=== PATIENT | female | born 1950 | race Caucasian/White ===

== ENCOUNTER 2016-07-02 00:11 | Emergency (ER) | payer OTHER ==
[2016-07-02 00:20] VITALS: BMI 29.8
[2016-07-02] MEDS ORDERED: NS 1000 ML 1,000 ML IV ONE ×4 (00:29→02:49)
[2016-07-02] MEDS ORDERED: ZOFRAN INJ 4 MG VIAL IVP ONE ×2 (00:29→02:25)
[2016-07-02] MEDS ORDERED: NS 1000 ML 1,000 ML ONE ×3 (00:30→02:48)
[2016-07-02] MEDS ORDERED: ZOFRAN INJ 4 MG VIAL ONE ×2 (00:30→02:26)
[2016-07-02 00:49] LABS: BASOPHILS % (AUTO) 0.4 % (0.2-1.0); EOSINOPHILS % (AUTO) 0.3 % (0.9-2.9); HEMATOCRIT 48.3 % (36.0-47.0); LYMPHOCYTES % (AUTO) 24.8 % (21.0-51.0); MEAN CORPUSCULAR HEMOGLOBIN 30.5 pg (27.0-34.0); MEAN CORPUSCULAR HGB CONC 35.2 g/dL (33.0-35.0); MEAN CORPUSCULAR VOLUME 86.7 fL (80.0-100.0); MEAN PLATELET VOLUME 8.1 fL (7.4-11.0); MONOCYTES # (AUTO) 0.9 x10^3/uL (0.3-0.8); MONOCYTES % (AUTO) 10.5 % (0.0-13.0); NEUTROPHILS # (AUTO) 5.3 x10^3/uL (2.2-4.8); PLATELET COUNT 382 X10^3/uL (150.0-450.0); RED BLOOD COUNT 5.57 X10^6/uL (3.5-5.4); RED CELL DISTRIBUTION WIDTH 13.2 % (11.6-16.5); WHITE BLOOD COUNT 8.3 X10^3/uL (3.6-10.0)
[2016-07-02 00:59] LABS: ALANINE AMINOTRANSFERASE 30 Units/L (12-78); ALBUMIN 4.3 g/dL (3.4-5.0); ALKALINE PHOSPHATASE 46 Units/L (46-116); AMYLASE 47 Units/L (25-115); ASPARTATE AMINO TRANSFERASE 26 Units/L (15-37); BLOOD UREA NITROGEN 59 mg/dL (7-18); CARBON DIOXIDE 16.4 mmol/L (21-32); CHLORIDE 99 mmol/L (98-107); COR NA(FOR HYPERGLY) 136 mmol/L (136-145); CREATININE 2.73 mg/dL (0.55-1.02); GLUCOSE 141 mg/dL (65-99); LIPASE 143 Units/L (73-393); SODIUM 135 mmol/L (136-145); TOTAL PROTEIN 8.8 g/dL (6.4-8.2); eGFR BLACK RACES 23 (>60); eGFR NON BLACK RACES 19 (>60)
--- NOTE | 2016-07-02 01:15 | DR.GENAD ---
HPI - PCP Primary Care Physician: mary ann - Complaint/Symptoms Chief Complaint Doctors Comments: History as stated. Vomiting and diarrhea for two days. Low grade fever. Spouse had similar illness two prior to her. Chief Complaint:: pt states" J LUIS HAD THIS VIRUS SINCE THRUSDAY MY STOMACH IS CRAMPING ME BAD, I STILL GOT DIARRHEA AND I'VE BEEN VOMITING BUT NOW I'M JUST DRY HEAVING" - Source History Provided: Patient - Mode of Arrival Mode of Arrival: Ambulatory - Timing Onset of Chief Complaint: 06/29/16 PMH - PMH Past Medical History: Yes Past Medical History: Asthma, COPD, Gout, Hypertension, Hypothyroidism Past Surgical History: Yes Surgical History: Cholecystectomy, Hysterectomy, Other - Family History History of Family Medical Conditions: Yes Family Medical History: Diabetes Mellitus, [place], Heart Failure, Hypertension - Social History Do you use any recreational Drugs:: No Lives With: Family Lives Where: Home - infectious screening In the last 2 months have you had wt loss of >10#?: NO Have you had fever, night sweats or hemotysis?: No Have you traveled outside the country in the last 6 months?: No Isolation: Standard ROS - Review of Systems Eyes: No Symptoms Reported ENTM: No Symptoms Reported Respiratoy: No Symptoms Reported Cardiovascular: No Symptoms Reported Gastrointestinal/Abdominal: No Symptoms Reported Genitourinary: No Symptoms Reported Neurological: No Symptoms Reported Musculoskeletal: No Symptoms Reported Integumentary: No Symptoms Reported Hematologic/Lymphatic: No Symptoms Reported Endocrine: No Symptoms Reported Psychiatric: No Symptoms Reported All Other Systems: Reviewed and Negative PE - Vital Signs Vitals: Temperature 98.8 F Pulse Rate [Left Brachial] 86 Pulse Rate 118 Respiratory Rate 20 Blood Pressure [Left Radial 141/62 Artery] Blood Pressure [Right Arm] 141/68 Blood Pressure [Left Arm] 121/60 Blood Pressure 159/98 O2 Sat by Pulse Oximetry 97 - General Limitations: No Limitations General Appearance: Alert, Anxious - Head Head Exam: Normal Inspection, Atraumatic - Eyes Eye exam: Normal Appearance, PERRL, EOMI, Scleral Icterus - ENT ENT Exam: Normal Exam. negative: Normal Oropharynx (dry) External Ear Exam: Normal External Inspection TM/Canal Exam: Bilateral Normal Nose Exam: Normal Nose Exam Mouth Exam: Normal Inspection Throat Exam: Normal Inspection - Neck Neck Exam: Normal Inspection, Full ROM - Chest Chest Inspection: Normal Inspection, Symmetric Chest Wall Rise - Respiratory Respiratory Exam: Normal Lung Sounds Bilat Respiratory Exam: Bilateral Clear to Auscultation - Cardiovascular Cardiovascular Exam: Regular Rate, Normal Rhythm - Abdominal Exam Abdominal Exam: Normal Inspection, Dimnished Bowel Sounds Abdominal Tenderness: negative: RUQ, RLQ, LUQ, LLQ, Epigastrium, Suprapubic, Diffuse, Mild, Moderate, Severe, Other - Extremities Extremities Exam: Normal Inspection, Full ROM - Back Back Exam: Normal Inspection, Full ROM - Neurologic Neurological Exam: Alert, Oriented X3 - Psychiatric Psychiatric Exam: Normal Mood, Anxious - Skin Skin Exam: Warm, Dry, Intact Course - Treatment Treatment: 2L NS pulse decreased to 86, capillary refill decreased mucous membranes moist. - Reevaluation 1st: Improved ROR - Labs Reviewed Laboratory Results Reviewed?: Yes (low potassium, elevated BUN) Result Diagrams: 07/02/16 00:40 07/02/16 03:48 Laboratory: WBC 8.3 X10^3/uL (3.6-10.0) 07/02/16 00:40 RBC 5.57 X10^6/uL (3.5-5.4) H 07/02/16 00:40 Hgb 17.0 g/dL (12.0-16.0) H 07/02/16 00:40 Hct 48.3 % (36.0-47.0) H 07/02/16 00:40 MCV 86.7 fL (80.0-100.0) 07/02/16 00:40 MCH 30.5 pg (27.0-34.0) 07/02/16 00:40 MCHC 35.2 g/dL (33.0-35.0) H 07/02/16 00:40 RDW 13.2 % (11.6-16.5) 07/02/16 00:40 Plt Count 382 X10^3/uL (150.0-450.0) 07/02/16 00:40 MPV 8.1 fL (7.4-11.0) 07/02/16 00:40 Neut % 64.0 % (42.0-75.0) 07/02/16 00:40 Lymph % 24.8 % (21.0-51.0) 07/02/16 00:40 [place] % 10.5 % (0.0-13.0) 07/02/16 00:40 Eos % 0.3 % (0.9-2.9) L 07/02/16 00:40 Baso % 0.4 % (0.2-1.0) 07/02/16 00:40 Neut # 5.3 x10^3/uL (2.2-4.8) H 07/02/16 00:40 Lymph # 2.0 X10^3/uL (1.3-2.9) 07/02/16 00:40 [place] # 0.9 x10^3/uL (0.3-0.8) H 07/02/16 00:40 Eos # 0.0 x10^3/uL (0.0-0.2) 07/02/16 00:40 Baso # 0.0 X10^3/uL (0.0-0.1) 07/02/16 00:40 Absolute Nucleated RBC 0.4 /100WBC 07/02/16 00:40 Sodium 143 mmol/L (136-145) 07/02/16 03:48 Corrected Sodium TNP 07/02/16 03:48 Potassium 3.3 mmol/L (3.5-5.1) L 07/02/16 03:48 Chloride 110 mmol/L (98-107) H 07/02/16 03:48 Carbon Dioxide 19.6 mmol/L (21-32) L 07/02/16 03:48 BUN 49 mg/dL (7-18) H 07/02/16 03:48 Creatinine 1.73 mg/dL (0.55-1.02) H 07/02/16 03:48 Est GFR (MDRD) Af Amer 38 (>60) L 07/02/16 03:48 Est GFR (MDRD) Non-Af 32 (>60) L 07/02/16 03:48 Glucose 107 mg/dL (65-99) H 07/02/16 03:48 Calcium 7.0 mg/dL (8.5-10.1) L 07/02/16 03:48 Corrected Calcium TNP 07/02/16 00:40 Total Bilirubin 0.60 mg/dL (0.2-1.0) 07/02/16 00:40 AST 26 Units/L (15-37) 07/02/16 00:40 ALT 30 Units/L (12-78) 07/02/16 00:40 Alkaline Phosphatase 46 Units/L (46-116) 07/02/16 00:40 C-Reactive Protein 39.00 mg/L (0-3.0) H 07/02/16 00:40 Total Protein 8.8 g/dL (6.4-8.2) H 07/02/16 00:40 Albumin 4.3 g/dL (3.4-5.0) 07/02/16 00:40 Globulin 4.5 g/dL (2.5-4.5) 07/02/16 00:40 Albumin/Globulin Ratio 1.0 Ratio (1.1-2.1) L 07/02/16 00:40 Amylase 47 Units/L (25-115) 07/02/16 00:40 Lipase 143 Units/L (73-393) 07/02/16 00:40 Specimen Type Clean catch urine 07/02/16 01:36 Urine Color Yellow (YELLOW) 07/02/16 01:36 Urine Appearance Hazy (CLEAR) 07/02/16 01:36 Urine pH 5.0 (5.0 - 8.0) 07/02/16 01:36 Ur Specific [place] 1.025 (1.000-1.030) 07/02/16 01:36 Urine Protein 2+ (NEGATIVE) 07/02/16 01:36 Urine Glucose (UA) Negative (NEGATIVE) 07/02/16 01:36 Urine Ketones 1+ (NEGATIVE) 07/02/16 01:36 Urine Occult Blood 2+ (NEGATIVE) 07/02/16 01:36 Urine Nitrite Negative (NEGATIVE) 07/02/16 01:36 Urine Bilirubin 1+ (NEGATIVE) 07/02/16 01:36 Urine Urobilinogen Normal (NORMAL) 07/02/16 01:36 Ur Leukocyte Esterase 2+ (NEGATIVE) 07/02/16 01:36 Urine RBC 1-4 /HPF (NEGATIVE) 07/02/16 01:36 Urine WBC 1-4 /HPF (NEGATIVE) 07/02/16 01:36 Ur Squamous Epith Cells Numerous /HPF (NEGATIVE) 07/02/16 01:36 Urine Bacteria Trace /HPF (NEGATIVE) 07/02/16 01:36 Urine Mucus Few /HPF (NEGATIVE) 04/23/17 01:36 Ur Culture Indicated? No/not indicated 07/02/16 01:36 - XRAY XRAY Interpreted by: Radiologist (Chest: negative) - Diagnosis Discharge Problem: Gastroenteritis, Dehydration, mild - Discharge Plan Condition: Stable - Follow ups/Referrals Follow ups/Referrals: MICHELINE TORIBIO [Primary Care Provider] - 3 days - Instructions
[2016-07-02] MEDS ORDERED: K-LYTE EFFERVESCENT PO ONE (01:18)
[2016-07-02] MEDS ORDERED: BENTYL I.M. INJ 10 MG IM ONE ×2 (01:19→01:37)
--- NOTE | 2016-07-02 01:41 | RAD ---
EXAM: Chest X-ray INDICATION: Vomiting COMPARISION: No recent prior TECHNIQUE: AP, single view FINDINGS: The lungs are clear in the lung volumes are within normal limits. No pleural effusion or pneumothora x. The cardiac silhouette and mediastinum are normal. The regional skeleton is intact. IMPRESSION: Normal Chest X-Ray Reported By:
[2016-07-02 01:50] LABS: BILIRUBIN,URINE 1+ (NEGATIVE); BLOOD/HEMOGLOBIN,URINE 2+ (NEGATIVE); GLUCOSE, URINE NEGATIVE (NEGATIVE); KETONES,URINE 1+ (NEGATIVE); LEUKOCYTE ESTERASE ,URINE 2+ (NEGATIVE); NITRITES,URINE NEGATIVE (NEGATIVE); PROTEIN,URINE 2+ (NEGATIVE); UROBILINOGEN,URINE NORMAL (NORMAL)
[2016-07-02 02:00] LABS: APPEARANCE,URINE HAZY (CLEAR); BACTERIA,URINE TRACE /HPF (NEGATIVE); COLOR,URINE YELLOW (YELLOW); MUCUS,URINE FEW /HPF (NEGATIVE); SQUAMOUS EPITHELIAL CELL,UR NUMEROUS /HPF (NEGATIVE)
[2016-07-02 02:34] VITALS: BP 141/62
[2016-07-02 04:04] LABS: BLOOD UREA NITROGEN 49 mg/dL (7-18); CARBON DIOXIDE 19.6 mmol/L (21-32); CHLORIDE 110 mmol/L (98-107); CREATININE 1.73 mg/dL (0.55-1.02); GLUCOSE 107 mg/dL (65-99); SODIUM 143 mmol/L (136-145); eGFR BLACK RACES 38 (>60); eGFR NON BLACK RACES 32 (>60)
[2016-07-02] MEDS ORDERED: K-DUR TAB 20 MEQ PO ONE ×2 (05:30→05:34)
== END 2016-07-02 05:41 | disposition home or self-care (01) ==
LOC: ER 00:11
DX: K52.89 Other specified noninfective gastroenteritis and colitis (principal); E86.0 Dehydration
CPT/HCPCS: 36415; 71010; 80048; 80053; 81001; 82150; 83690; 85025; 86140; 96365; 96367; 96372; 96374; 96375; 99283; A4222; J0500; J2405

== ENCOUNTER → 2016-07-19 | Outpatient (CLI) | payer OTHER ==
[2012-11-08 11:02] VITALS: BP 141/68
--- NOTE | 2016-07-21 10:00 | MG ---
Examination: Bilateral screening mammogram. Clinical history: Routine screening. Technique: Digital CC and MLO views of both breasts were obtained. Computer aided detection analysis was performed and used during the interpretation. Comparison: 07/19/2015. Findings: The breasts are composed of scattered fibroglandular densities. Benign-appearing calcifications are noted in the right breast. No suspicious mass, area of architectural distortion or suspicious cluster of microcalcifications is noted. Impression: 1. No mammographic evidence of malignancy. BI-RADS category 2-benign findings. Recommend routine annual screening mammogram. Diagnostic CAD was utilized and reviewed. * 0 (ZERO) - ASSESSMENT INCOMPLETE; ADDITIONAL IMAGING IS NEEDED. * 0C - ASSESSMENT INCOMPLETE, NEEDS ADDITIONAL IMAGING EVALUATION AND/OR PRIOR MAMMOGRAMS FOR COMPAR SIM. * 1/1 (ONE) - NEGATIVE. * 2/II (TWO) - BENIGN FINDINGS. * 3/III (THREE) - PROBABLY BENIGN FINDING; SHORT INTERVAL FOLLOW-UP SUGGESTED. * 4/IV (FOUR) - SUSPICIOUS ABNORMALITY; BIOPSY SHOULD BE CONSIDERED. * 5/V - HIGHLY SUSPICIOUS OF MALIGNANCY; BIOPSY SHOULD BE PERFORMED. * 6/IV - KNOWN BIOPSY PROVEN MALIGNANCY-APPROPRIATE ACTION SHOULD BE TAKEN. A NEGATIVE X-RAY REPORT SHOULD NOT DELAY BIOPSY IF A DOMINANT OR CLINICALLY SUSPICIOUS MASS IS PRESENT; 4 TO 8 PERCENT OF CANCERS ARE NOT IDENTIFIED BY X-RAY. A NEGATIVE REPORT MAY REINFORCE THE CLINICAL IMPRESSION. ADENOSIS AND DENSE BREASTS MAY OBSCURE AN UNDERLYING NEOPLASM. Reported By:
== END ==
LOC: RAD 09:04
PROVIDERS: ATTEND Specialist
DX: Z12.31 Encounter for screening mammogram for malignant neoplasm of breast (principal)
CPT/HCPCS: 77067

== ENCOUNTER 2017-04-20 10:47 | Emergency (ER) | payer OTHER ==
[2017-04-20 10:52] VITALS: BP 149/70; BMI 29.2
--- NOTE | 2017-04-20 11:08 | DR.GENAD ---
HPI - PCP Primary Care Physician: SANTA TORIBIO - HPI Comment HPI Comment: PAIN WORSE TODAY. NO FEVER. MEDS TAKEN IS NOT HELPING. - Complaint/Symptoms Chief Complaint Doctors Comments: CHEST PAIN AND PAIN IN UPPER BACK TIMES ONE WEEK. Chief Complaint:: PATIENT HAS BEEN SICK ALL WEEK. THE OFFICE STAFF STATED THAT SHE HAS THE FLU BUT TREATED HER FOR IT. SHE STATED THAT HER BACK AND CHEST HAS BEEN HURTING FOR THE A WEEK NOW. - Nurses notes reviewed Nurses Notes Review: Yes - Source History Provided: Patient - Mode of Arrival Mode of Arrival: Ambulatory - Timing Onset of Chief Complaint: 04/13/17 Came on: Suddenly - Duration Duration: Constant Duration: Days - Severity Severity: Moderate PMH - PMH Past Medical History: Yes Past Medical History: Asthma, COPD, Gout, Hypertension, Hypothyroidism Past Surgical History: Yes Surgical History: Cholecystectomy, Hysterectomy, Other - Family History History of Family Medical Conditions: Yes Family Medical History: Diabetes Mellitus, [place], Heart Failure, Hypertension - Social History Does patient currently use any type of tobacco product: No Have you used tobacco products in the last 12 months: No Type of Tobacco Use: None Does any household member use tobacco: No Alcohol Use: None Do you use any recreational Drugs:: No Lives With: Family Lives Where: Home - infectious screening In the last 2 months have you had wt loss of >10#?: NO Have you had fever, night sweats or hemotysis?: No Have you traveled outside the country in the last 6 months?: No Isolation: Standard ROS - Review of Systems Constitutional: No Symptoms Reported Eyes: No Symptoms Reported ENTM: No Symptoms Reported Respiratoy: Non-Productive Cough. negative: Productive Cough, Short of Breath, Wheezing, Hemoptysis Cardiovascular: Chest Pain (CHEST WALL PAIN) Gastrointestinal/Abdominal: No Symptoms Reported Genitourinary: No Symptoms Reported Neurological: No Symptoms Reported Musculoskeletal: No Symptoms Reported Integumentary: No Symptoms Reported Hematologic/Lymphatic: No Symptoms Reported Endocrine: No Symptoms Reported All Other Systems: Reviewed and Negative PE - Vital Signs Vitals: Temperature 98.8 F Pulse Rate 61 Respiratory Rate 20 Blood Pressure [Left Radial 141/62 Artery] Blood Pressure [Right Arm] 141/68 Blood Pressure [Left Arm] 121/60 Blood Pressure 149/70 O2 Sat by Pulse Oximetry 99 - General Limitations: No Limitations General Appearance: Alert - Head Head Exam: Normal Inspection - Eyes Eye exam: Normal Appearance - ENT ENT Exam: Normal External Ear Exam External Ear Exam: Normal External Inspection TM/Canal Exam: Bilateral Normal Nose Exam: Normal Nose Exam Mouth Exam: Normal Inspection Throat Exam: Normal Inspection - Neck Neck Exam: Trachea Midline - Chest Chest Inspection: Symmetric Chest Wall Rise - Respiratory Respiratory Exam: Normal Lung Sounds Bilat Respiratory Exam: Bilateral Clear to Auscultation - Cardiovascular Cardiovascular Exam: Regular Rate, Normal Rhythm, Normal Heart Sounds - Abdominal Exam Abdominal Exam: Normal Bowel Sounds, Soft. negative: Tenderness - Extremities Extremities Exam: Normal Inspection, Tenderness (CHEST WALL TENDERNESS) - Back Back Exam: Normal Inspection - Neurologic Neurological Exam: Alert, Oriented X3 - Psychiatric Psychiatric Exam: Normal Affect, Normal Mood - Skin Skin Exam: Normal Color MDM - Differential Diagnosis Differential Diagnosis: CHEST PAIN, [place], PNEUMONIA, BRONCHITIS Course - Treatment Treatment: SEE ORDERS. - Education/Counseling Education/Counseling: Patient, Family Educated On: Diagnosis ROR - Labs Reviewed Laboratory Results Reviewed?: Yes Result Diagrams: 04/20/17 11:18 04/20/17 11:18 Laboratory: WBC 9.3 X10^3/uL (3.6-10.0) 04/20/17 11:18 RBC 4.72 X10^6/uL (3.5-5.4) 04/20/17 11:18 Hgb 14.5 g/dL (12.0-16.0) 04/20/17 11:18 Hct 41.7 % (36.0-47.0) 04/20/17 11:18 MCV 88.3 fL (80.0-100.0) 04/20/17 11:18 MCH 30.7 pg (27.0-34.0) 04/20/17 11:18 MCHC 34.7 g/dL (33.0-35.0) 04/20/17 11:18 RDW 13.3 % (11.6-16.5) 04/20/17 11:18 Plt Count 322 X10^3/uL (150.0-450.0) 04/20/17 11:18 MPV 7.6 fL (7.4-11.0) 04/20/17 11:18 Neut % 76.3 % (42.0-75.0) H 04/20/17 11:18 Lymph % 18.7 % (21.0-51.0) L 04/20/17 11:18 [place] % 4.6 % (0.0-13.0) 04/20/17 11:18 Eos % 0.1 % (0.9-2.9) L 04/20/17 11:18 Baso % 0.3 % (0.2-1.0) 04/20/17 11:18 Neut # 7.1 x10^3/uL (2.2-4.8) H 04/20/17 11:18 Lymph # 1.7 X10^3/uL (1.3-2.9) 04/20/17 11:18 [place] # 0.4 x10^3/uL (0.3-0.8) 04/20/17 11:18 Eos # 0.0 x10^3/uL (0.0-0.2) 04/20/17 11:18 Baso # 0.0 X10^3/uL (0.0-0.1) 04/20/17 11:18 Absolute Nucleated RBC 0.2 /100WBC 04/20/17 11:18 Sodium 140 mmol/L (136-145) 04/20/17 11:18 Corrected Sodium TNP 04/20/17 11:18 Potassium 4.2 mmol/L (3.5-5.1) 04/20/17 11:18 Chloride 105 mmol/L (98-107) 04/20/17 11:18 Carbon Dioxide 27.4 mmol/L (21-32) 04/20/17 11:18 BUN 15 mg/dL (7-18) 04/20/17 11:18 Creatinine 0.98 mg/dL (0.55-1.02) 04/20/17 11:18 Est GFR (MDRD) Af Amer > 60 (>60) 04/20/17 11:18 Est GFR (MDRD) Non-Af > 60 (>60) 04/20/17 11:18 Glucose 109 mg/dL (65-99) H 04/20/17 11:18 Calcium 9.3 mg/dL (8.5-10.1) 04/20/17 11:18 Corrected Calcium TNP 04/20/17 11:18 Total Bilirubin 0.40 mg/dL (0.2-1.0) 04/20/17 11:18 AST 15 Units/L (15-37) 04/20/17 11:18 ALT 26 Units/L (12-78) 04/20/17 11:18 Alkaline Phosphatase 38 Units/L (46-116) L 04/20/17 11:18 Creatine Kinase 51 Units/L (26-192) 04/20/17 11:18 CK-MB (CK-2) < 1.0 ng/mL (0-4.0) 04/20/17 11:18 CK/CKMB % Calc 2.0 % (<4) 04/20/17 11:18 Troponin I < 0.02 ng/mL (0-1.5) 04/20/17 11:18 Total Protein 7.8 g/dL (6.4-8.2) 04/20/17 11:18 Albumin 4.0 g/dL (3.4-5.0) 04/20/17 11:18 Globulin 3.8 g/dL (2.5-4.5) 04/20/17 11:18 Albumin/Globulin Ratio 1.1 Ratio (1.1-2.1) 04/20/17 11:18 - XRAY XRAY Interpreted by: Radiologist XRAY Findings: REPORT DISCUSS WITH PATIENT. - EKG Rhythm: NSR (EKG NOTED.) - Diagnosis Discharge Problem: Pleurisy Chest pain Qualifiers: Chest pain type: precordial pain Qualified Code(s): R07.2 - Precordial pain - Discharge Plan Disposition: HOME, SELF-CARE Condition: Stable Prescriptions: Ketorolac Tromethamine [Toradol Tab] 10 mg PO Q8H PRN #20 tab PRN Reason: Pain Ranitidine HCl [ZANTAC TAB 150 MG *] 150 mg PO DAILY #30 tab - Follow ups/Referrals Follow ups/Referrals: NFD,None [Primary Care Provider] - 3 days - Instructions Instructions: Pleurisy, [id number], Chest Pain Observation Additional Instructions: RETURN TO ED IF WORSE.
[2017-04-20 11:29] LABS: BASOPHILS % (AUTO) 0.3 % (0.2-1.0); EOSINOPHILS % (AUTO) 0.1 % (0.9-2.9); HEMATOCRIT 41.7 % (36.0-47.0); HEMOGLOBIN 14.5 g/dL (12.0-16.0); LYMPHOCYTES # (AUTO) 1.7 X10^3/uL (1.3-2.9); LYMPHOCYTES % (AUTO) 18.7 % (21.0-51.0); MEAN CORPUSCULAR HEMOGLOBIN 30.7 pg (27.0-34.0); MEAN CORPUSCULAR HGB CONC 34.7 g/dL (33.0-35.0); MEAN CORPUSCULAR VOLUME 88.3 fL (80.0-100.0); MEAN PLATELET VOLUME 7.6 fL (7.4-11.0); MONOCYTES # (AUTO) 0.4 x10^3/uL (0.3-0.8); MONOCYTES % (AUTO) 4.6 % (0.0-13.0); NEUTROPHILS # (AUTO) 7.1 x10^3/uL (2.2-4.8); NEUTROPHILS % (AUTO) 76.3 % (42.0-75.0); PLATELET COUNT 322 X10^3/uL (150.0-450.0); RED BLOOD COUNT 4.72 X10^6/uL (3.5-5.4); RED CELL DISTRIBUTION WIDTH 13.3 % (11.6-16.5); WHITE BLOOD COUNT 9.3 X10^3/uL (3.6-10.0)
[2017-04-20 11:43] LABS: BLOOD UREA NITROGEN 15 mg/dL (7-18); CALCIUM 9.3 mg/dL (8.5-10.1); CARBON DIOXIDE 27.4 mmol/L (21-32); CHLORIDE 105 mmol/L (98-107); CREATININE 0.98 mg/dL (0.55-1.02); SODIUM 140 mmol/L (136-145); TROPONIN I < 0.02 ng/mL (0-1.5); eGFR BLACK RACES > 60 (>60); eGFR NON BLACK RACES > 60 (>60)
[2017-04-20 11:47] LABS: ALANINE AMINOTRANSFERASE 26 Units/L (12-78); ALKALINE PHOSPHATASE 38 Units/L (46-116); ASPARTATE AMINO TRANSFERASE 15 Units/L (15-37); CREATINE KINASE 51 Units/L (26-192); CREATINE KINASE MB < 1.0 ng/mL (0-4.0); TOTAL PROTEIN 7.8 g/dL (6.4-8.2)
--- NOTE | 2017-04-20 12:07 | RAD ---
Examination: Chest, PA and lateral views History: Asthma, chest pain Comparison 07/02/2016 Findings: Essentially normal heart size with clear lungs and pleural spaces. Metallic clothing artifa cts are present over the central lower chest. Impression: No acute chest findings. Reported By:
== END 2017-04-20 12:22 | disposition home or self-care (01) ==
LOC: ER 10:54
DX: R07.2 Precordial pain (principal); R09.1 Pleurisy
CPT/HCPCS: 36415; 71046; 80053; 82550; 82553; 84484; 85025; 93005; 93010; 99282

== ENCOUNTER → 2017-07-23 | Outpatient (CLI) | payer OTHER ==
--- NOTE | 2017-07-24 11:13 | MG ---
HISTORY: SCREENING Comparison: Multiple priors dating back to August 10, 2011 FINDINGS: Bilateral CC and MLO projections of the right and left breast were obtained. Scattered fibroglandula r tissue is seen to be present without suspicious interval change. No significant architectural dist ortion, mass or clustered microcalcifications can be observed to suggest malignancy. No skin thicken ing or nipple retraction is appreciated. No pathological lymphadenopathy can be identified. IMPRESSION: NO RADIOGRAPHIC EVIDENCE OF MALIGNANCY. ACR CATEGORY I - NEGATIVE EXAM. FOLLOW-UP EXAM 1 YEAR. Diagnostic CAD was utilized and reviewed. * 0 (ZERO) - ASSESSMENT INCOMPLETE; ADDITIONAL IMAGING IS NEEDED. * / (ONE) - NEGATIVE. * 2/II (TWO) - BENIGN FINDINGS. * 3/III (THREE) - PROBABLY BENIGN FINDING; SHORT INTERVAL FOLLOW-UP SUGGESTED. * 4/IV (FOUR) - SUSPICIOUS ABNORMALITY; BIOPSY SHOULD BE CONSIDERED. * 5/V - HIGHLY SUSPICIOUS OF MALIGNANCY; BIOPSY SHOULD BE PERFORMED. A NEGATIVE X-RAY REPORT SHOULD NOT DELAY BIOPSY IF A DOMINANT OR CLINICALLY SUSPICIOUS MASS IS PRESENT; 4 TO 8 PERCENT OF CANCERS ARE NOT IDENTIFIED BY X-RAY. A NEGA TIVE REPORT MAY REINFORCE THE CLINICAL IMPRESSION. ADENOSIS AND DENSE BREASTS MAY OBSCURE AN UNDERLY ING NEOPLASM. Reported By:
== END ==
LOC: RAD 09:55
PROVIDERS: ATTEND Specialist
DX: Z12.31 Encounter for screening mammogram for malignant neoplasm of breast (principal)
CPT/HCPCS: 77067